=== PATIENT | female | born 1930 | race Caucasian/White ===

== ENCOUNTER 2017-06-30 20:17 | Inpatient (IN) | payer MEDICAID ==
[2017-06-30] MEDS: ASPIRIN 325 MG TAB PO (21:00)
[2017-06-30] MEDS: NITROGLYCERIN (SL) 0.4 MG TAB SL (21:00)
[2017-06-30 22:15] LABS: ADD MAN DIFF? NO
[2017-06-30 22:24] LABS: WHITE BLOOD COUNT 4.8 10^3/ul (4.8-10.8)
[2017-06-30 22:24] LABS: BASOPHILS % 0.2 % (0.0-2.0); EOSINOPHILS # 0.1 10^3/ul (0.0-0.5); EOSINOPHILS % 1.7 % (0.0-7.0); HEMATOCRIT 32.5 % (37.0-47.0); HEMOGLOBIN 11.3 g/dl (12.0-16.0); LYMPHOCYTES # 1.9 10^3/ul (0.8-2.9); LYMPHOCYTES % 39.8 % (15.0-51.0); MEAN CORPUSCULAR HEMOGLOBIN 31.5 pg (29.0-33.0); MEAN CORPUSCULAR HGB CONC 34.8 g/dl (32.0-37.0); MEAN CORPUSCULAR VOLUME 90.5 fl (82.0-101.0); MEAN PLATELET VOLUME 12.3 fl (7.4-10.4); MONOCYTE # 0.4 10^3/ul (0.3-0.9); MONOCYTES % 7.7 % (0.0-11.0); NEUTROPHIL # 2.4 10^3/ul (1.6-7.5); NEUTROPHILS % 50.2 % (39.0-77.0); PLATELET COUNT 122 10^3/UL (140-415); RED BLOOD COUNT 3.59 10^6/ul (4.20-5.40); RED CELL DISTRIBUTION WIDTH 12.6 % (11.5-14.5)
[2017-06-30 22:43] LABS: ALANINE AMINOTRANSFERASE 25 IU/L (13-69); ALBUMIN 4.2 g/dl (3.3-4.9); ALBUMIN/GLOBULIN RATIO 1.16; ALKALINE PHOSPHATASE 123 IU/L (42-121); ANION GAP 18 (8-16); ASPARTATE AMINO TRANSFERASE 29 IU/L (15-46); BILIRUBIN,INDIRECT 0.3 mg/dl (0-1.1); BILIRUBIN,TOTAL 0.3 mg/dl (0.2-1.3); BLOOD UREA NITROGEN 18 mg/dl (7-20); CALCIUM 9.4 mg/dl (8.4-10.2); CARBON DIOXIDE 22 mmol/L (21-31); CHLORIDE 104 mmol/L (97-110); CREATINE KINASE 119 IU/L (23-200); CREATININE 0.86 mg/dl (0.44-1.00); GLUCOSE 339 mg/dl (70-220); SODIUM 140 mmol/L (135-144); TOTAL PROTEIN 7.8 g/dl (6.1-8.1)
[2017-06-30 22:51] LABS: INR 0.82; PROTIME 11.4 Sec (11.9-14.9); PT RATIO 0.9
[2017-06-30 22:55] LABS: B-TYPE NATRIURETIC PEPTIDE 266 PG/ML (0-450); CK INDEX 2.6; CK-MB 3.04 ng/ml (0.0-2.4); TROPONIN-I < 0.012 ng/ml (0.00-0.12)
[2017-06-30] MEDS ORDERED: ACETAMINOPHEN 325 MG TAB PO (23:00)
[2017-06-30] MEDS ORDERED: ONDANSETRON 4 MG INJ IV (23:00)
[2017-06-30] MEDS: INSULIN LISPRO 100 UNIT/ML VIAL SC (23:50)
[2017-07-01] MEDS ORDERED: GLUCOSE GEL 15 GRAM TUBE BUCCAL (02:00)
[2017-07-01] MEDS ORDERED: GLUCAGON 1 MG INJ IM (02:00)
[2017-07-01] MEDS ORDERED: morphine 2 MG INJ IV (02:00)
[2017-07-01] MEDS ORDERED: NITROGLYCERIN (SL) 0.4 MG TAB SL (02:00)
[2017-07-01] MEDS ORDERED: DEXTROSE 50% 50 ML SYRINGE IV ×2 (02:00)
[2017-07-01] MEDS ORDERED: GLUCOSE GEL 15 GRAM TUBE PO ×2 (02:00)
[2017-07-01] MEDS: ACCU-CHEK XX (03:06)
[2017-07-01 03:54] LABS: TROPONIN-I 0.016 ng/ml (0.00-0.12)
[2017-07-01] MEDS: INSULIN DETEMIR [LEVEMIR] 3ML CART SC (09:05)
[2017-07-01] MEDS: INSULIN ASPART [NOVOLOG] 3 ML PEN SC ×4 (09:06→21:56)
[2017-07-01 09:50] LABS: TROPONIN-I 0.013 ng/ml (0.00-0.12)
[2017-07-01 12:24] LABS: HEMOGLOBIN A1C 8.5 % (0-5.9)
[2017-07-01] MEDS: ACETAMINOPHEN 325 MG TAB PO (13:59)
[2017-07-02] MEDS: ACCU-CHEK XX (02:17)
[2017-07-02] MEDS: INSULIN ASPART [NOVOLOG] 3 ML PEN SC ×7 (08:05→21:32)
[2017-07-02] MEDS: INSULIN DETEMIR [LEVEMIR] 3ML CART SC (08:06)
[2017-07-02 08:43] LABS: ADD MAN DIFF? NO
[2017-07-02 08:51] LABS: BASOPHILS % 0.2 % (0.0-2.0); EOSINOPHILS # 0.2 10^3/ul (0.0-0.5); EOSINOPHILS % 3.7 % (0.0-7.0); HEMATOCRIT 31.4 % (37.0-47.0); HEMOGLOBIN 10.8 g/dl (12.0-16.0); LYMPHOCYTES # 2.3 10^3/ul (0.8-2.9); LYMPHOCYTES % 47.1 % (15.0-51.0); MEAN CORPUSCULAR HEMOGLOBIN 30.9 pg (29.0-33.0); MEAN CORPUSCULAR HGB CONC 34.4 g/dl (32.0-37.0); MEAN PLATELET VOLUME 12.2 fl (7.4-10.4); MONOCYTE # 0.4 10^3/ul (0.3-0.9); MONOCYTES % 7.7 % (0.0-11.0); NEUTROPHILS % 41.3 % (39.0-77.0); PLATELET COUNT 116 10^3/UL (140-415); RED BLOOD COUNT 3.49 10^6/ul (4.20-5.40); RED CELL DISTRIBUTION WIDTH 12.9 % (11.5-14.5)
[2017-07-02 08:51] LABS: WHITE BLOOD COUNT 4.8 10^3/ul (4.8-10.8)
[2017-07-02 09:28] LABS: ANION GAP 16 (8-16); BLOOD UREA NITROGEN 24 mg/dl (7-20); CALCIUM 9.1 mg/dl (8.4-10.2); CARBON DIOXIDE 25 mmol/L (21-31); CHLORIDE 106 mmol/L (97-110); CREATININE 0.98 mg/dl (0.44-1.00); GLUCOSE 193 mg/dl (70-220); POTASSIUM 3.8 mmol/L (3.5-5.1); SODIUM 143 mmol/L (135-144)
[2017-07-02] MEDS: SENNA TAB PO (20:57)
[2017-07-02] MEDS: MAGNESIUM HYDROXIDE 30ML CUP PO (20:57)
[2017-07-03] MEDS: ACCU-CHEK XX (02:08)
[2017-07-03] MEDS: PANTOPRAZOLE (EC) 40 MG TAB PO (06:45)
[2017-07-03] MEDS: INSULIN ASPART [NOVOLOG] 3 ML PEN SC ×4 (08:15→12:24)
[2017-07-03] MEDS: INSULIN DETEMIR [LEVEMIR] 3ML CART SC (08:16)
[2017-07-03] MEDS: INFLUENZA VIRUS VACCINE 0.5 ML (DISPENSING) IM* ×2 (08:19→12:23)
[2017-07-03] MEDS: LISINOPRIL 20 MG TAB PO (13:55)
== END 2017-07-03 15:56 | disposition home or self-care (01) | DRG 313 ==
LOC: E/R 20:17 → MS4 22:33
DX: R07.9 Chest pain, unspecified (principal); E11.65 Type 2 diabetes mellitus with hyperglycemia; R00.1 Bradycardia, unspecified; D64.9 Anemia, unspecified; R10.13 Epigastric pain; I10 Essential (primary) hypertension; E78.5 Hyperlipidemia, unspecified; R53.81 Other malaise; R06.02 Shortness of breath
CPT/HCPCS: 36415; 71045; 76700; 80048; 80053; 82550; 82553; 82962; 83036; 83880; 84484; 85025; 85610; 85730; 90686; 93005; 93306; 96372; 97163; 99285-25; G0378

== ENCOUNTER 2017-08-19 23:13 | Inpatient (IN) | payer MEDICAID ==
[2017-08-19] MEDS ORDERED: LABETALOL HCL 20MG INJ (23:46)
[2017-08-19] MEDS: ASPIRIN 325 MG TAB PO (23:55)
[2017-08-19] MEDS: LABETALOL HCL 20MG INJ IV (23:55)
[2017-08-20 00:14] LABS: ADD MAN DIFF? NO
[2017-08-20 00:16] LABS: BASOPHILS % 0.5 % (0.0-2.0); EOSINOPHILS # 0.1 10^3/ul (0.0-0.5); HEMATOCRIT 33.3 % (37.0-47.0); HEMOGLOBIN 11.8 g/dl (12.0-16.0); LYMPHOCYTES # 1.6 10^3/ul (0.8-2.9); MEAN CORPUSCULAR HEMOGLOBIN 31.3 pg (29.0-33.0); MEAN CORPUSCULAR HGB CONC 35.4 g/dl (32.0-37.0); MEAN CORPUSCULAR VOLUME 88.3 fl (82.0-101.0); MEAN PLATELET VOLUME 12.1 fl (7.4-10.4); MONOCYTE # 0.3 10^3/ul (0.3-0.9); MONOCYTES % 6.4 % (0.0-11.0); NEUTROPHIL # 2.1 10^3/ul (1.6-7.5); NEUTROPHILS % 51.9 % (39.0-77.0); PLATELET COUNT 124 10^3/UL (140-415); RED BLOOD COUNT 3.77 10^6/ul (4.20-5.40); RED CELL DISTRIBUTION WIDTH 12.4 % (11.5-14.5)
[2017-08-20 00:16] LABS: WHITE BLOOD COUNT 4.1 10^3/ul (4.8-10.8)
[2017-08-20 00:38] LABS: ANION GAP 18 (8-16); BLOOD UREA NITROGEN 24 mg/dl (7-20); CALCIUM 9.5 mg/dl (8.4-10.2); CARBON DIOXIDE 25 mmol/L (21-31); CHLORIDE 96 mmol/L (97-110); CREATININE 0.87 mg/dl (0.44-1.00); POTASSIUM 4.4 mmol/L (3.5-5.1); SODIUM 135 mmol/L (135-144)
[2017-08-20 00:39] LABS: INR 0.84; PARTIAL THROMBOPLASTIN TIME 25.9 Sec (25.0-35.0); PROTIME 11.6 Sec (11.9-14.9); PT RATIO 0.9
[2017-08-20 00:42] LABS: GLUCOSE 576 mg/dl (70-220)
[2017-08-20 00:49] LABS: B-TYPE NATRIURETIC PEPTIDE 216 PG/ML (0-450)
[2017-08-20 00:50] LABS: TROPONIN-I < 0.012 ng/ml (0.00-0.12)
[2017-08-20] MEDS: ONDANSETRON 4 MG INJ IV (01:05)
[2017-08-20] MEDS: morphine 2 MG INJ IV (01:07)
[2017-08-20] MEDS: SOD CHLORIDE 0.9% 1,000 ML IV ×3 (02:03→20:19)
[2017-08-20 02:20] LABS: ADD UMIC YES; UR ASCORBIC ACID NEGATIVE (NEGATIVE); UR BILIRUBIN (Dip) NEGATIVE (NEGATIVE); UR BLOOD (Dip) 1+ mg/dL (NEGATIVE); UR CLARITY CLEAR (CLEAR); UR COLOR STRAW (YELLOW); UR GLUCOSE (Dip) 3+ mg/dL (NEGATIVE); UR KETONES (Dip) NEGATIVE (NEGATIVE); UR LEUKOCYTE ESTERASE (Dip) NEGATIVE Leu/ul (NEGATIVE); UR NITRITE (Dip) NEGATIVE (NEGATIVE); UR RBC 0 /HPF (0-5); UR SPECIFIC GRAVITY (Dip) 1.021 (1.003-1.030); UR TOTAL PROTEIN (Dip) NEGATIVE (NEGATIVE); UR UROBILINOGEN (Dip) NEGATIVE (NEGATIVE); UR WBC 1 /HPF (0-5)
[2017-08-20] MEDS ORDERED: GLUCOSE GEL 15 GRAM TUBE BUCCAL (03:00)
[2017-08-20] MEDS ORDERED: NITROGLYCERIN (SL) 0.4 MG TAB SL (03:00)
[2017-08-20] MEDS ORDERED: GLUCOSE GEL 15 GRAM TUBE PO ×2 (03:00)
[2017-08-20] MEDS ORDERED: ONDANSETRON 4 MG INJ IV ×2 (03:00)
[2017-08-20] MEDS ORDERED: GLUCAGON 1 MG INJ IM (03:00)
[2017-08-20] MEDS ORDERED: NACL 0.9% 3 ML SYG IV (03:00)
[2017-08-20] MEDS ORDERED: ACETAMINOPHEN 325 MG TAB PO ×2 (03:00)
[2017-08-20] MEDS ORDERED: DEXTROSE 50% 50 ML SYRINGE IV ×2 (03:00)
[2017-08-20] MEDS ORDERED: hydrALAzine 20 MG INJ IV ×2 (03:30→05:30)
[2017-08-20] MEDS: INSULIN REGULAR, HUMAN 100 UNIT/1 ML 3ML VIAL IV (03:57)
[2017-08-20] MEDS: INSULIN ASPART [NOVOLOG] 3 ML PEN SC ×5 (05:00→20:18)
[2017-08-20] MEDS: PANTOPRAZOLE (EC) 40 MG TAB PO (05:20)
[2017-08-20] MEDS ORDERED: INSULIN ASPART [NOVOLOG] 3 ML PEN SC (08:00)
[2017-08-20] MEDS: ASPIRIN (EC) 81 MG TAB PO (08:19)
[2017-08-20] MEDS: LISINOPRIL 20 MG TAB PO (08:24)
[2017-08-20] MEDS: INSULIN DETEMIR [LEVEMIR] 3ML CART SC (08:32)
[2017-08-20 09:15] LABS: CREATINE KINASE 111 IU/L (23-200)
[2017-08-20 09:16] LABS: MAGNESIUM 1.9 mg/dl (1.7-2.5)
[2017-08-20 09:24] LABS: CK INDEX 2.7; CK-MB 3.02 ng/ml (0.0-2.4)
[2017-08-20 09:25] LABS: TROPONIN-I < 0.012 ng/ml (0.00-0.12)
[2017-08-20] MEDS: CEFTRIAXONE 1 GM/50 ML (PMX) 50 ML IVPB (11:12)
[2017-08-20 12:12] LABS: CREATINE KINASE 97 IU/L (23-200)
[2017-08-20] MEDS: AZITHROMYCIN 500MG/NS (PMX) 250 ML IVPB (12:15)
[2017-08-20 12:26] LABS: CK INDEX 2.8; CK-MB 2.67 ng/ml (0.0-2.4)
[2017-08-20 12:32] LABS: TROPONIN-I < 0.012 ng/ml (0.00-0.12)
[2017-08-20] MEDS: ATORVASTATIN 20 MG TAB PO (20:13)
[2017-08-21] MEDS: ACCU-CHEK XX (02:00)
[2017-08-21] MEDS ORDERED: ACCU-CHEK XX ×2 (02:00)
[2017-08-21] MEDS: PANTOPRAZOLE (EC) 40 MG TAB PO (05:26)
[2017-08-21 07:27] LABS: ADD MAN DIFF? NO
[2017-08-21 07:43] LABS: BASOPHILS % 0.5 % (0.0-2.0); EOSINOPHILS # 0.1 10^3/ul (0.0-0.5); EOSINOPHILS % 2.5 % (0.0-7.0); HEMATOCRIT 30.2 % (37.0-47.0); HEMOGLOBIN 10.2 g/dl (12.0-16.0); LYMPHOCYTES # 1.8 10^3/ul (0.8-2.9); LYMPHOCYTES % 45.1 % (15.0-51.0); MEAN CORPUSCULAR HGB CONC 33.8 g/dl (32.0-37.0); MEAN CORPUSCULAR VOLUME 91.8 fl (82.0-101.0); MEAN PLATELET VOLUME 12.5 fl (7.4-10.4); MONOCYTE # 0.3 10^3/ul (0.3-0.9); MONOCYTES % 6.5 % (0.0-11.0); NEUTROPHIL # 1.8 10^3/ul (1.6-7.5); NEUTROPHILS % 45.1 % (39.0-77.0); PLATELET COUNT 116 10^3/UL (140-415); RED BLOOD COUNT 3.29 10^6/ul (4.20-5.40); RED CELL DISTRIBUTION WIDTH 12.9 % (11.5-14.5)
[2017-08-21 08:15] LABS: ALANINE AMINOTRANSFERASE 21 IU/L (13-69); ALBUMIN 3.5 g/dl (3.3-4.9); ALBUMIN/GLOBULIN RATIO 1.09; ALKALINE PHOSPHATASE 104 IU/L (42-121); ANION GAP 15 (8-16); ASPARTATE AMINO TRANSFERASE 18 IU/L (15-46); BILIRUBIN,INDIRECT 0.3 mg/dl (0-1.1); BILIRUBIN,TOTAL 0.3 mg/dl (0.2-1.3); BLOOD UREA NITROGEN 17 mg/dl (7-20); CALCIUM 8.7 mg/dl (8.4-10.2); CARBON DIOXIDE 26 mmol/L (21-31); CHLORIDE 110 mmol/L (97-110); CREATININE 0.82 mg/dl (0.44-1.00); GLUCOSE 216 mg/dl (70-220); POTASSIUM 4.6 mmol/L (3.5-5.1); SODIUM 146 mmol/L (135-144); TOTAL PROTEIN 6.7 g/dl (6.1-8.1)
[2017-08-21] MEDS: LISINOPRIL 20 MG TAB PO (08:55)
[2017-08-21] MEDS: ASPIRIN (EC) 81 MG TAB PO (08:55)
[2017-08-21] MEDS: INSULIN ASPART [NOVOLOG] 3 ML PEN SC ×6 (08:58→20:42)
[2017-08-21] MEDS: INSULIN DETEMIR [LEVEMIR] 3ML CART SC (08:58)
[2017-08-21] MEDS: CEFTRIAXONE 1 GM/50 ML (PMX) 50 ML IVPB (09:00)
[2017-08-21] MEDS: SOD CHLORIDE 0.9% 1,000 ML IV (11:06)
[2017-08-21] MEDS: AZITHROMYCIN 500MG/NS (PMX) 250 ML IVPB (12:28)
[2017-08-21] MEDS: ATORVASTATIN 20 MG TAB PO (20:38)
[2017-08-22] MEDS: ACCU-CHEK XX (02:00)
[2017-08-22] MEDS: PANTOPRAZOLE (EC) 40 MG TAB PO (05:37)
[2017-08-22] MEDS: ASPIRIN (EC) 81 MG TAB PO (08:15)
[2017-08-22] MEDS: LISINOPRIL 20 MG TAB PO (08:16)
[2017-08-22] MEDS: INSULIN ASPART [NOVOLOG] 3 ML PEN SC ×4 (08:18→12:37)
[2017-08-22] MEDS: INSULIN DETEMIR [LEVEMIR] 3ML CART SC (08:20)
== END 2017-08-22 14:10 | disposition home or self-care (01) | DRG 304 ==
LOC: E/R 23:13 → TEL 08-20 02:37
PROVIDERS: Family Medicine
DX: I16.1 Hypertensive emergency (principal); G93.40 Encephalopathy, unspecified; I47.2 Ventricular tachycardia; R07.9 Chest pain, unspecified; I10 Essential (primary) hypertension; E11.65 Type 2 diabetes mellitus with hyperglycemia; D64.9 Anemia, unspecified; R51 Headache; E78.5 Hyperlipidemia, unspecified; Z79.4 Long term (current) use of insulin; Z79.82 Long term (current) use of aspirin; Z91.14 Patient's other noncompliance with medication regimen
CPT/HCPCS: 36415; 70450; 71045; 80048; 80053; 81001; 82550; 82553; 82962; 83735; 83880; 84484; 85025; 85610; 85730; 87040; 87086; 93005; 96374; 96375; 99291-25

== ENCOUNTER 2017-08-22 17:08 | Emergency (ER) | payer MEDICAID ==
[2017-08-22] MEDS: LIDOCAINE/MYLANTA 40 ML BTL PO (20:31)
[2017-08-22] MEDS: BELLADONNA/PHENOBARBITAL TAB PO (20:32)
[2017-08-22] MEDS: ONDANSETRON 4 MG INJ IM (20:32)
== END 2017-08-22 21:42 | disposition home or self-care (01) ==
LOC: E/R 17:08
DX: R11.2 Nausea with vomiting, unspecified (principal); R10.13 Epigastric pain; I10 Essential (primary) hypertension; E11.9 Type 2 diabetes mellitus without complications; Z79.4 Long term (current) use of insulin; Z79.82 Long term (current) use of aspirin
CPT/HCPCS: 96372; 99284-25

== ENCOUNTER 2017-09-11 10:31 | Emergency (ER) | payer MEDICAID ==
[2017-09-11 11:24] LABS: ADD MAN DIFF? NO
[2017-09-11 11:32] LABS: BASOPHILS % 0.2 % (0.0-2.0); EOSINOPHILS # 0.1 10^3/ul (0.0-0.5); EOSINOPHILS % 1.9 % (0.0-7.0); HEMATOCRIT 32.2 % (37.0-47.0); HEMOGLOBIN 10.9 g/dl (12.0-16.0); LYMPHOCYTES # 1.3 10^3/ul (0.8-2.9); LYMPHOCYTES % 27.8 % (15.0-51.0); MEAN CORPUSCULAR HEMOGLOBIN 31.1 pg (29.0-33.0); MEAN CORPUSCULAR HGB CONC 33.9 g/dl (32.0-37.0); MEAN CORPUSCULAR VOLUME 91.7 fl (82.0-101.0); MEAN PLATELET VOLUME 11.9 fl (7.4-10.4); MONOCYTE # 0.4 10^3/ul (0.3-0.9); MONOCYTES % 8.1 % (0.0-11.0); NEUTROPHIL # 2.9 10^3/ul (1.6-7.5); NEUTROPHILS % 61.8 % (39.0-77.0); PLATELET COUNT 113 10^3/UL (140-415); POSITIVE DIFF @See below; RED BLOOD COUNT 3.51 10^6/ul (4.20-5.40); RED CELL DISTRIBUTION WIDTH 12.8 % (11.5-14.5)
[2017-09-11 11:32] LABS: WHITE BLOOD COUNT 4.7 10^3/ul (4.8-10.8)
[2017-09-11 11:42] LABS: ANION GAP 18 (8-16); BLOOD UREA NITROGEN 20 mg/dl (7-20); CALCIUM 9.5 mg/dl (8.4-10.2); CARBON DIOXIDE 24 mmol/L (21-31); CHLORIDE 108 mmol/L (97-110); CREATININE 0.83 mg/dl (0.44-1.00); GLUCOSE 138 mg/dl (70-220); POTASSIUM 3.9 mmol/L (3.5-5.1); SODIUM 146 mmol/L (135-144)
[2017-09-11 11:57] LABS: TROPONIN-I < 0.012 ng/ml (0.00-0.12)
[2017-09-11 11:58] LABS: ADD UMIC NO; UR ASCORBIC ACID NEGATIVE (NEGATIVE); UR BILIRUBIN (Dip) NEGATIVE (NEGATIVE); UR BLOOD (Dip) NEGATIVE (NEGATIVE); UR CLARITY CLEAR (CLEAR); UR COLOR COLORLESS (YELLOW); UR GLUCOSE (Dip) 1+ mg/dL (NEGATIVE); UR KETONES (Dip) NEGATIVE (NEGATIVE); UR LEUKOCYTE ESTERASE (Dip) NEGATIVE Leu/ul (NEGATIVE); UR NITRITE (Dip) NEGATIVE (NEGATIVE); UR SPECIFIC GRAVITY (Dip) 1.004 (1.003-1.030); UR TOTAL PROTEIN (Dip) NEGATIVE (NEGATIVE); UR UROBILINOGEN (Dip) NEGATIVE (NEGATIVE)
== END 2017-09-11 12:31 | disposition home or self-care (01) ==
LOC: E/R 10:31
DX: E11.649 Type 2 diabetes mellitus with hypoglycemia without coma (principal); R51 Headache; Z79.84 Long term (current) use of oral hypoglycemic drugs
CPT/HCPCS: 36415; 70450; 71045; 80048; 81003; 84484; 85025; 99285-25

== ENCOUNTER 2017-12-12 01:43 | Emergency (ER) | payer MEDICAID ==
[2017-12-12 06:34] LABS: ADD MAN DIFF? NO
[2017-12-12 06:37] LABS: BASOPHILS % 0.2 % (0.0-2.0); EOSINOPHILS # 0.1 10^3/ul (0.0-0.5); EOSINOPHILS % 0.9 % (0.0-7.0); HEMATOCRIT 33.5 % (37.0-47.0); HEMOGLOBIN 11.2 g/dl (12.0-16.0); LYMPHOCYTES # 1.7 10^3/ul (0.8-2.9); LYMPHOCYTES % 30.4 % (15.0-51.0); MEAN CORPUSCULAR HEMOGLOBIN 30.9 pg (29.0-33.0); MEAN CORPUSCULAR HGB CONC 33.4 g/dl (32.0-37.0); MEAN CORPUSCULAR VOLUME 92.3 fl (82.0-101.0); MEAN PLATELET VOLUME 11.2 fl (7.4-10.4); MONOCYTE # 0.5 10^3/ul (0.3-0.9); NEUTROPHIL # 3.4 10^3/ul (1.6-7.5); NEUTROPHILS % 60.1 % (39.0-77.0); PLATELET COUNT 141 10^3/UL (140-415); RED BLOOD COUNT 3.63 10^6/ul (4.20-5.40); RED CELL DISTRIBUTION WIDTH 13.4 % (11.5-14.5)
[2017-12-12 06:37] LABS: WHITE BLOOD COUNT 5.6 10^3/ul (4.8-10.8)
[2017-12-12] MEDS: DIPHENHYDRAMINE 50 MG INJ IV (06:43)
[2017-12-12] MEDS: PROCHLORPERAZINE 10 MG INJ IV (06:43)
[2017-12-12] MEDS: SOD CHLORIDE 0.9% 500 ML IV (06:44)
[2017-12-12] MEDS: HYDROmorphONE 1 MG/ML SYG IV (06:44)
[2017-12-12 06:56] LABS: INR 0.81; PROTIME 11.2 Sec (11.9-14.9); PT RATIO 0.9
[2017-12-12 06:57] LABS: PARTIAL THROMBOPLASTIN TIME 28.9 Sec (25.0-35.0)
[2017-12-12 07:05] LABS: ANION GAP 16 (8-16); BLOOD UREA NITROGEN 18 mg/dl (7-20); CALCIUM 9.6 mg/dl (8.4-10.2); CARBON DIOXIDE 23 mmol/L (21-31); CHLORIDE 110 mmol/L (97-110); CREATININE 0.84 mg/dl (0.44-1.00); GLUCOSE 55 mg/dl (70-220); POTASSIUM 4.2 mmol/L (3.5-5.1); SODIUM 145 mmol/L (135-144)
== END 2017-12-12 09:36 | disposition home or self-care (01) ==
LOC: E/R 01:43
DX: R51 Headache (principal); I10 Essential (primary) hypertension; E11.9 Type 2 diabetes mellitus without complications; Z87.891 Personal history of nicotine dependence; Z79.4 Long term (current) use of insulin; Z79.82 Long term (current) use of aspirin
CPT/HCPCS: 36415; 70450; 80048; 85025; 85610; 85730; 96374; 96375; 99285-25

== ENCOUNTER 2018-01-18 13:23 | Emergency (ER) | payer MEDICAID ==
[2018-01-18 14:21] LABS: ADD MAN DIFF? NO
[2018-01-18 14:26] LABS: BASOPHILS % 0.2 % (0.0-2.0); EOSINOPHILS # 0.1 10^3/ul (0.0-0.5); EOSINOPHILS % 1.5 % (0.0-7.0); HEMATOCRIT 35.6 % (37.0-47.0); HEMOGLOBIN 11.9 g/dl (12.0-16.0); LYMPHOCYTES # 1.5 10^3/ul (0.8-2.9); LYMPHOCYTES % 18.1 % (15.0-51.0); MEAN CORPUSCULAR HEMOGLOBIN 30.9 pg (29.0-33.0); MEAN CORPUSCULAR HGB CONC 33.4 g/dl (32.0-37.0); MEAN CORPUSCULAR VOLUME 92.5 fl (82.0-101.0); MEAN PLATELET VOLUME 11.8 fl (7.4-10.4); MONOCYTE # 0.6 10^3/ul (0.3-0.9); MONOCYTES % 7.5 % (0.0-11.0); NEUTROPHIL # 5.9 10^3/ul (1.6-7.5); NEUTROPHILS % 72.2 % (39.0-77.0); PLATELET COUNT 125 10^3/UL (140-415); RED BLOOD COUNT 3.85 10^6/ul (4.20-5.40); RED CELL DISTRIBUTION WIDTH 13.2 % (11.5-14.5)
[2018-01-18 14:26] LABS: WHITE BLOOD COUNT 8.2 10^3/ul (4.8-10.8)
[2018-01-18 14:42] LABS: ANION GAP 16 (8-16); BLOOD UREA NITROGEN 24 mg/dl (7-20); CALCIUM 9.8 mg/dl (8.4-10.2); CARBON DIOXIDE 25 mmol/L (21-31); CHLORIDE 109 mmol/L (97-110); CREATININE 1.01 mg/dl (0.44-1.00); GLUCOSE 51 mg/dl (70-220); POTASSIUM 4.3 mmol/L (3.5-5.1); SODIUM 146 mmol/L (135-144)
[2018-01-18 14:54] LABS: TROPONIN-I < 0.010 ng/ml (0.000-0.120)
== END 2018-01-18 17:35 | disposition home or self-care (01) ==
LOC: E/R 13:23
DX: R07.9 Chest pain, unspecified (principal); D64.9 Anemia, unspecified; D69.6 Thrombocytopenia, unspecified; I10 Essential (primary) hypertension; E11.9 Type 2 diabetes mellitus without complications; Z79.4 Long term (current) use of insulin; Z79.82 Long term (current) use of aspirin; Z87.891 Personal history of nicotine dependence
CPT/HCPCS: 36415; 71045; 80048; 82962; 84484; 85025; 93005; 99285-25

== ENCOUNTER 2018-02-05 15:50 | Emergency (ER) | payer MEDICAID ==
[2018-02-05 18:15] LABS: ADD MAN DIFF? NO
[2018-02-05 18:20] LABS: BASOPHILS % 0.2 % (0.0-2.0); EOSINOPHILS # 0.1 10^3/ul (0.0-0.5); EOSINOPHILS % 0.6 % (0.0-7.0); HEMATOCRIT 34.9 % (37.0-47.0); HEMOGLOBIN 11.7 g/dl (12.0-16.0); LYMPHOCYTES # 2.1 10^3/ul (0.8-2.9); LYMPHOCYTES % 25.3 % (15.0-51.0); MEAN CORPUSCULAR HEMOGLOBIN 31.4 pg (29.0-33.0); MEAN CORPUSCULAR HGB CONC 33.5 g/dl (32.0-37.0); MEAN CORPUSCULAR VOLUME 93.6 fl (82.0-101.0); MONOCYTE # 0.6 10^3/ul (0.3-0.9); MONOCYTES % 6.6 % (0.0-11.0); NEUTROPHIL # 5.6 10^3/ul (1.6-7.5); NEUTROPHILS % 67.1 % (39.0-77.0); PLATELET COUNT 116 10^3/UL (140-415); RED BLOOD COUNT 3.73 10^6/ul (4.20-5.40)
[2018-02-05 18:20] LABS: WHITE BLOOD COUNT 8.3 10^3/ul (4.8-10.8)
[2018-02-05 18:36] LABS: LACTIC ACID 1.6 mmol/L (0.5-2.0)
[2018-02-05 18:37] LABS: ANION GAP 16 (8-16); BLOOD UREA NITROGEN 24 mg/dl (7-20); CARBON DIOXIDE 25 mmol/L (21-31); CHLORIDE 108 mmol/L (97-110); CREATININE 1.05 mg/dl (0.44-1.00); GLUCOSE 83 mg/dl (70-220); POTASSIUM 4.7 mmol/L (3.5-5.1); SODIUM 144 mmol/L (135-144)
[2018-02-05 18:40] LABS: INR 0.94; PROTIME 12.7 Sec (11.9-14.9)
[2018-02-05 18:41] LABS: PARTIAL THROMBOPLASTIN TIME 28.8 Sec (25.0-35.0)
[2018-02-05 18:48] LABS: TROPONIN-I < 0.012 ng/ml (0.000-0.120)
[2018-02-05] MEDS: morphine 4 MG/ML VIAL IV (18:52)
[2018-02-05] MEDS: ONDANSETRON 4 MG INJ IV (18:52)
[2018-02-05] MEDS: SODIUM CHLORIDE 0.9% 1L BAG IV* (18:52)
[2018-02-05 20:17] LABS: LACTIC ACID 0.9 mmol/L (0.5-2.0)
== END 2018-02-05 21:04 | disposition home or self-care (01) ==
LOC: E/R 15:50
DX: R10.84 Generalized abdominal pain (principal); R51 Headache; I10 Essential (primary) hypertension; E11.9 Type 2 diabetes mellitus without complications; Z79.4 Long term (current) use of insulin; Z79.82 Long term (current) use of aspirin; Z87.891 Personal history of nicotine dependence
CPT/HCPCS: 36415; 70450; 71045; 74176; 76705; 80048; 83605; 84484; 85025; 85610; 85730; 87040; 93005; 96374; 96375; 99285-25